=== PATIENT | female | born 1970 | race African-American/Black ===

== ENCOUNTER 2018-01-20 19:05 | Emergency (ER) | payer OTHER ==
[~2018-01-20] VITALS: Ht 167.6 cm; Wt 77.0 kg
[~2018-01-20 19:05] MED LIST: COM10 PO; OMEP40CA PO; POTA20TA34 PO
[2018-01-20] MEDS ORDERED: KETOROLAC 60MG/2ML VIAL IM ONE (22:30)
[2018-01-20 23:51] VITALS: BP 124/80
== END 2018-01-20 23:55 | disposition home or self-care (01) ==
LOC: ER 19:05
DX: S40.021A Contusion of right upper arm, initial encounter (principal); M79.641 Pain in right hand; M25.531 Pain in right wrist; V49.50XA Passenger injured in collision with unspecified motor vehicles in traffic accident, initial encounter; Y93.89 Activity, other specified; Y92.410 Unspecified street and highway as the place of occurrence of the external cause; D57.1 Sickle-cell disease without crisis
CPT/HCPCS: 29125; 73110; 73130; 96372; 99284; J1885; Z7610; A4565